=== PATIENT | male | born 1950 | race Caucasian/White ===

== ENCOUNTER 2021-03-29 22:40 | Emergency (ER) | payer MEDICARE, BC ==
[2021-03-29] MEDS ORDERED: Bacitracin Oint 1 GM U/D Packet TOP ONE (22:41)
[2021-03-29] MEDS ORDERED: Diphtheria,Pertussis(Acell),Tetanus Vaccine 0.5 ML Syringe IM ONE (22:50)
[2021-03-29 23:01] VITALS: BP 164/68; PULSE 60
--- NOTE | 2021-03-29 23:22 | EDM.PDOC ---
ED HPI GENERAL MEDICAL PROBLEM - General Chief Complaint: Laceration Stated Complaint: CUT FINGERS ON TABLE SAW Time Seen by Provider: 03/29/21 23:00 Source of Information: Reports: Patient History Limitations: Reports: No Limitations - History of Present Illness INITIAL COMMENTS - FREE TEXT/NARRATIVE: There is a 71-year-old male presenting to the ED for evaluation of a laceration to his left middle finger. The incident occurred around 11:00 this morning when he was cutting wood on his table saw. He went down to push away one of the remnant pieces which caught the sawblade pulling his finger into the blade. He did apply direct pressure and a bandage on the area shortly after it occurred and was able to get bleeding to stop, however, the patient is on Plavix and it again started to bleed throughout the afternoon and evening prompting him to come in for evaluation. Laceration is approximately 2.2 cm in length and does abut the nailbed at the tip of the finger. Patient's last tetanus was in 2015. Left Finger-Middle Pain Score (Numeric/FACES): 2 - Related Data Allergies Allergy/AdvReac Type Severity Reaction Status Date / Time No Known Allergies Allergy Verified 03/29/21 23:01 Home Meds: Home Meds Albuterol Sulfate [Albuterol Sulfate HFA] 2 puff INH Q4H PRN 02/06/15 [History] Aspirin [Nestor Chewable Aspirin] 1 tab PO DAILY 02/06/15 [History] Clopidogrel [Plavix] 75 mg PO DAILY 02/06/15 [History] Cyclobenzaprine [Flexeril] 1 tab PO DAILY 02/06/15 [History] Lansoprazole [Prevacid] 30 mg PO DAILY 02/06/15 [History] Lisinopril 20 mg PO DAILY 02/06/15 [History] Metoprolol Succinate 25 mg PO DAILY 02/06/15 [History] Simvastatin [Zocor] 1 tab PO DAILY 02/06/15 [History] Nitroglycerin 0.4 mg SL Q5M PRN #50 tab.subl 02/07/15 [Rx] Past Medical History HEENT History: Reports: Hard of Hearing, Impaired Vision Cardiovascular History: Reports: High Cholesterol, Hypertension Musculoskeletal History: Reports: Fracture - Past Surgical History Cardiovascular Surgical History: Reports: Coronary Artery Stent Musculoskeletal Surgical History: Reports: Knee Replacement Social & Family History - Tobacco Use Tobacco Use Status *Q: Never Tobacco User - Caffeine Use Caffeine Use: Reports: None - Alcohol Use Days Per Week of Alcohol Use: 3 Number of Drinks Per Day: 1 Total Drinks Per Week: 3 - Recreational Drug Use Recreational Drug Use: No ED ROS GENERAL - Review of Systems Review Of Systems: See Below Constitutional: Reports: No Symptoms HEENT: Reports: No Symptoms Respiratory: Reports: No Symptoms Cardiovascular: Reports: No Symptoms Endocrine: Reports: No Symptoms GI/Abdominal: Reports: No Symptoms : Reports: No Symptoms Musculoskeletal: Reports: No Symptoms Skin: Reports: Other (Laceration to the tip of the left third finger abutting the nailbed.) Neurological: Reports: No Symptoms Psychiatric: Reports: No Symptoms Hematologic/Lymphatic: Reports: No Symptoms Immunologic: Reports: No Symptoms ED EXAM, SKIN/RASH Exam: See Below Exam Limited By: No Limitations General Appearance: Alert, No Apparent Distress Neurological: Alert, Oriented, Normal Cognition, No Motor/Sensory Deficits Skin: Wound/Incision (2.2 cm laceration at the tip of the left third finger abutting the distal end of the nailbed.) ED SKIN PROCEDURES - Laceration/Wound Repair Left Distal Digit - 3rd (Middle) Appearance: Subcutaneous, Mildly Contaminated Distal NVT: Neuro & Vascular Intact Anesthetic Type: Local Local Anesthesia - Lidocaine (Xylocaine): 1% Plain Local Anesthetic Volume: 2cc Skin Prep: Saline Exploration/Debridement/Repair: Wound Explored, In a Bloodless Field, Explored to Base, Minimally Undermined Closed with: Sutures Lac/Wound length In cm: 2.2 Suture Size: 4-0 # of Sutures: 4 Suture Type: Nylon, Interrupted Sterile Dressing Applied: Provider Tetanus Status Addressed: Yes Complications: No Course - Vital Signs Last Recorded V/S: Last Vital Signs Temp 37.2 C 03/29/21 23:07 Pulse 60 03/29/21 23:07 Resp 22 H 03/29/21 23:07 BP 164/68 H 03/29/21 23:07 Pulse Ox 98 03/29/21 23:07 - Orders/Labs/Meds Orders: Active Orders 24 hr Category Date Time Status Vaccines to be Administered [RC] PER UNIT ROUTINE Care 03/29/21 22:50 Active Meds: Medications Discontinued Medications Generic Name Dose Route Start Last Admin Trade Name Frekrystyna PRN Reason Stop Dose Admin Bacitracin 1 dose 03/29/21 22:41 03/29/21 23:07 Bacitracin Oint 1 Gm U/D Packet TOP 03/29/21 22:42 1 dose ONETIME ONE Administration Diphtheria/Tetanus/Acell Pertussis 0.5 ml 03/29/21 22:50 03/29/21 23:10 Diphtheria,Pertussis(Acell),Tetanus Vaccine 0.5 Ml Syringe IM 03/29/21 22:51 0.5 ml .ONCE ONE Administration Lidocaine HCl 5 ml 03/29/21 22:41 03/29/21 23:07 Lidocaine 1% 5 Ml Sdv INJECT 03/29/21 22:42 5 ml ONETIME ONE Administration - Re-Assessments/Exams Free Text/Narrative Re-Assessment/Exam: 03/29/21 23:19 the patient had a fingertip laceration abutting the nailbed. I was able to clean this out and under my note with some normal saline and trimming with iris scissors. The wound edges were then approximated using 4-0 Ethilon requiring 4 simple interrupted sutures with one suture through the nail, nailbed and into the distal skin closing not edge of the laceration. Patient tolerated the procedure well. A light coating of bacitracin was applied and over that and [employer] dressing with tube gauze to secure it. Departure - Departure Time of Disposition: 23:20 Disposition: Home, Self-Care 01 Clinical Impression: Laceration of left middle finger Qualifiers: Encounter type: initial encounter Damage to nail status: without damage Foreign body presence: without foreign body Qualified Code(s): S61.213A - Laceration without foreign body of left middle finger without damage to nail, initial encounter - Discharge Information Instructions: Sutures, Drew, or Adhesive Wound Closure, [id number], Laceration Care, Adult Referrals: Rajat Wolf MD [Primary Care Provider] - Care Plan Goals: Please keep the wound clean and dry for at least the next 24 hours until the scab forms. Keep the dressing in place unless the becomes wet or dirty for the next 24 hours. You may apply a bandage over the wound once you remove this dressing. Sutures will need to be removed in 7 to 10 days which can be done at your local providers office. Watch for any signs of infection and let us know should any arise including redness, increased pain, purulent discharge, or fever. Sepsis Event Note (ED) - Evaluation Sepsis Screening Result: No Definite Risk - Focused Exam Vital Signs: Vital Signs Temp Pulse Resp BP Pulse Ox 03/29/21 23:07 37.2 C 60 22 H 164/68 H 98 03/29/21 23:00 37.2 C 60 22 H 164/68 H 98 - Problem List & Annotations (1) Laceration of left middle finger SNOMED Code(s): 53517382990899299 Code(s): S61.213A - LACERATION W/O FB OF L MID FINGER W/O DAMAGE TO NAIL, INIT Status: Acute Priority: Medium Current Visit: Yes Qualifiers: Encounter type: initial encounter Damage to nail status: without damage Foreign body presence: without foreign body Qualified Code(s): S61.213A - Laceration without foreign body of left middle finger without damage to nail, initial encounter - Problem List Review Problem List Initiated/Reviewed/Updated: Yes - My Orders Last 24 Hours: My Active Orders 03/29/21 22:50 Vaccines to be Administered [RC] PER UNIT ROUTINE - Assessment/Plan Last 24 Hours: My Active Orders 03/29/21 22:50 Vaccines to be Administered [RC] PER UNIT ROUTINE
== END 2021-03-29 23:28 | disposition home or self-care (01) ==
LOC: JP.ED 22:40
DX: S61.213A Laceration without foreign body of left middle finger without damage to nail, initial encounter (principal); Z79.82 Long term (current) use of aspirin; Z79.02 Long term (current) use of antithrombotics/antiplatelets; I10 Essential (primary) hypertension; Z95.5 Presence of coronary angioplasty implant and graft; Z23 Encounter for immunization; W27.0XXA Contact with workbench tool, initial encounter
CPT/HCPCS: 11760; 12001; 90471; 90715; 99282-25; 99283

== ENCOUNTER 2022-09-01 10:27 | Emergency (ER) | payer MEDICARE, BC ==
[2022-09-01] MEDS ORDERED: Sodium Chloride 0.9% 10 ML Syringe FLUSH PRN (10:33)
[2022-09-01] MEDS ORDERED: Ondansetron 4 MG/2 ML SDV IVPUSH ONE (11:36)
[2022-09-01 12:19] LABS: ESTIMATED GFR 93 mL/min (>60)
[2022-09-01] MEDS ORDERED: Iopamidol 612 MG/ML 100 ML Bottle IV ONE (13:06)
[2022-09-01] MEDS ORDERED: Sodium Chloride 0.9% 100 ML IV ONE (13:06)
[2022-09-01 15:33] VITALS: BP 190/90; PULSE 64
== END 2022-09-01 15:38 | disposition home or self-care (01) ==
LOC: JP.ED 10:27
DX: K85.90 Acute pancreatitis without necrosis or infection, unspecified (principal); E78.00 Pure hypercholesterolemia, unspecified; I10 Essential (primary) hypertension; Z79.899 Other long term (current) drug therapy; Z79.82 Long term (current) use of aspirin
CPT/HCPCS: 36415; 74177; 80053; 83690; 85025; 86140; 96374; 99284; J2405; J3490; Q9967

== ENCOUNTER 2024-04-27 16:45 | Emergency (ER) | payer BC, MEDICARE ==
[2024-04-27 17:41] LABS: BASOPHILS PERCENT AUTO 0.3 % (0.1-1.3); EOSINOPHILS ABSOLUTE AUTO 0.14 K/uL (0.00-0.40); EOSINOPHILS PERCENT AUTO 2.2 % (0.0-5.4); HEMATOCRIT 33.1 % (38.4-49.7); HEMOGLOBIN 11.4 g/dL (12.9-16.9); IMMATURE GRAN PERCENT AUTO 0.3 % (0.0-0.7); LYMPHOCYTES ABSOLUTE AUTO 1.57 K/uL (0.8-3.3); LYMPHOCYTES PERCENT AUTO 24.8 % (11.4-47.7); MEAN CORPUSCULAR HEMOGLOBIN 33.6 pg (31.6-35.5); MEAN CORPUSCULAR HGB CONC 34.4 g/dL (31.6-35.5); MEAN CORPUSCULAR VOLUME 97.6 fL (81.4-99.0); MONOCYTES PERCENT AUTO 9.5 % (3.3-12.6); NEUTROPHILS ABSOLUTE AUTO 3.99 K/uL (1.0-7.6); NEUTROPHILS PERCENT AUTO 62.9 % (40.0-78.1); PLATELET COUNT,PLT 226 K/uL (130-375); RED BLOOD CELL COUNT 3.39 M/uL (4.14-5.76); WHITE BLOOD CELL COUNT,WBC 6.3 K/uL (3.2-11.0)
[2024-04-27 17:45] LABS: BASOPHILS ABSOLUTE AUTO 0.02 K/uL (0.00-0.10); IMMATURE GRAN ABSOLUTE AUTO 0.02 K/uL (0.00-0.23)
[2024-04-27 17:51] LABS: PROTHROMBIN TIME 10.2 sec (9.2-10.6); PTT,PARTIAL THROMBOPLSTIN TIME 26.1 sec (21.8-27.3)
[2024-04-27 17:59] LABS: A/G RATIO 0.9 (1.2-2.2); ALANINE AMINOTRANSFERASE,ALT 20 U/L (12-78); ALBUMIN 2.9 g/dL (3.4-5.0); ALKALINE PHOSPHATASE 74 U/L (46-116); ANION GAP 5.9 mmol/L (5.0-14.0); ASPARTATE AMNIOTRANSFERASE,AST 15 U/L (15-37); BILIRUBIN TOTAL 0.7 mg/dL (0.2-1.0); BLOOD UREA NITROGEN,BUN 20 mg/dL (7-18); CALCIUM 8.7 mg/dL (8.5-10.1); CARBON DIOXIDE,CO2 29 mmol/L (21-32); CHLORIDE,CL 107 mmol/L (100-108); CREATININE 1.1 mg/dL (0.8-1.3); EST CRCL DRUG DOSING (CG) 62.71 mL/min; ESTIMATED GFR 70 mL/min (>60); GLUCOSE RANDOM 99 mg/dL (74-106); MAGNESIUM 1.7 mg/dL (1.8-2.4); POTASSIUM,K 3.8 mmol/L (3.6-5.2); PRO B-TYPE NATRIUR PEPT,BNPPRO 839 pg/mL (5-450); PROTEIN TOTAL,TP 6.3 g/dL (6.4-8.2); SODIUM,NA 142 mmol/L (140-148); TROPONIN I HIGH SENSITIVITY 17.4 pg/mL (<=60.3)
[2024-04-27 20:27] VITALS: BP 196/85; PULSE 49
== END 2024-04-27 20:45 | disposition home or self-care (01) ==
LOC: JP.ED 16:45
DX: R07.89 Other chest pain (principal); R09.89 Other specified symptoms and signs involving the circulatory and respiratory systems; E78.00 Pure hypercholesterolemia, unspecified; Z79.51 Long term (current) use of inhaled steroids; Z79.82 Long term (current) use of aspirin; Z79.899 Other long term (current) drug therapy; Z95.5 Presence of coronary angioplasty implant and graft
CPT/HCPCS: 36415; 71045; 71045-26; 80053; 83735; 83880; 84100; 84484; 85025; 85610; 85730; 93005; 93010; 99285